=== PATIENT | male | born 1985 ===

== ENCOUNTER 2019-01-11 07:33 | Emergency (ER) | payer SELFPAY ==
--- NOTE | 2019-01-11 07:53 | UC ---
UC General HPI - HPI Summary HPI Summary: right sided mid back pain for two days. painful to urinate difficult to void, burning. 33 yo gentleman presents c/o pain in R back and R flank, started a couple days ago. Some associated dysuria / freq / urg. No fever / chills. Pain worse yesterday, couldn't sleep last night d/t pain. Has taken ibuprofen several times, most recently last evening. Helps a little but not much. No rash. No hx nor now family hx of similar pain. Does not take supplements. 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 Has not vomited. No sob / cp / palpiations. No hx abd surgery - History of Current Complaint Chief Complaint: UCGU Stated Complaint: BACK PAIN Hx Obtained From: Patient Pain Intensity: 9 - Allergy/Home Medications Allergies/Adverse Reactions: Allergies Allergy/AdvReac Type Severity Reaction Status Date / Time No Known Allergies Allergy Verified 01/11/19 07:46 Home Medications: Home Medications NK [No Home Medications Reported] 01/11/19 [History Confirmed 01/11/19] PMH/Surg Hx/FS Hx/Imm Hx Previously Healthy: Yes - Surgical History Surgical History: None - Family History Known Family History: Positive: Other - see hpi - Social History Alcohol Use: Rare Substance Use Type: Marijuana Smoking Status (MU): Light Every Day Tobacco Smoker Review of Systems All Other Systems Reviewed And Are Negative: Yes Constitutional: Positive: Fever Skin: Positive: Other - no rash Eyes: Positive: Negative ENT: Positive: Negative Respiratory: Positive: Negative Cardiovascular: Positive: Negative Gastrointestinal: Positive: Other - see hpi Genitourinary: Positive: Other - see hpi Motor: Positive: Negative Neurovascular: Positive: Negative Musculoskeletal: Positive: Negative Neurological: Positive: Negative Psychological: Positive: Negative Is Patient Immunocompromised?: No Physical Exam Triage Information Reviewed: Yes Appearance: Well-Nourished - looks uncomfortable, but nontoxic, nad Vital Signs: Initial Vital Signs Temp 98.2 F 01/11/19 07:40 Pulse 104 01/11/19 07:40 Resp 20 01/11/19 07:40 BP 161/105 01/11/19 07:40 Pulse Ox 98 01/11/19 07:40 Vital Signs Reviewed: Yes Eye Exam: Normal - grossly normal ENT Exam: Normal - grossly normal Respiratory Exam: Normal Respiratory: Positive: Chest non-tender, Lungs clear, Normal breath sounds, No respiratory distress, No accessory muscle use Cardiovascular Exam: Normal Cardiovascular: Positive: RRR, No Murmur, Pulses Normal, Brisk Capillary Refill Abdominal Exam: Other Abdomen Description: Positive: Other: - + R flank + R back tenderness. ABd soft. No hsm appreciated. No bladder tenderness with pressure. No visible or reported rash. Musculoskeletal Exam: Normal Neurological Exam: Normal Psychological Exam: Normal - conversing easily and appropriately Skin Exam: Normal - nondiaphoretic Course/Dx - Course Course Of Treatment: Offered ketoralac, declines. Urine dip noted + blood (see meditech). Cx sent. CT a/p noncont renal study - 3mm calculus at distal ureter. There is hydroureter, hydronephrosis. Reviewed results with pt and mom (driving). 09:40 requests pain medication (declines hydrocodone d/t gi, but will try T#3) Will check cbc, bmp. Does not have pcp, will look for a pcp. [facility] [place] referral tel given. Will refer to Urology. To ED for ANY worse or new problems. Questions as posed answered to the best of my ability. - Diagnoses Provider Diagnosis: Kidney stone on right side, Hydronephrosis Discharge - Sign-Out/Discharge Documenting (check all that apply): Patient Departure All imaging exams completed and their final reports reviewed: Yes - Discharge Plan Condition: Stable Disposition: HOME Patient Education Materials: Kidney Stones (ED), Hydronephrosis (ED) Referrals: No Primary Care Phys,NOPCP [Primary Care Provider] - Additional Instructions: Drink plenty of water. Do not drive / operate heavy machinery while you are in pain, or while you are taking pain medications. Follow up with urology next week if possible. Go to the EMERGENCY DEPARTMENT for any worse or new problems. You have a urine culture in the lab. You will be notified if positive, requiring results. - Billing Disposition and Condition Condition: STABLE Disposition: Home
[2019-01-11] MEDS ORDERED: Acetaminop/Codeine 30 MG TAB* 1 TAB (300 MG/30 MG) PO ONE (09:50)
[2019-01-11 10:36] VITALS: BP 152/96
[2019-01-11 12:55] LABS: ABS Basophils 0 10^3/ul (0-0.2); ABS Eosinophils 0.1 10^3/ul (0-0.6); ABS Lymphocytes 1.6 10^3/ul (1.0-4.8); ABS Monocytes 1.1 10^3/ul (0-0.8); ABS Neutrophils 8.1 10^3/ul (1.5-7.7); ABS Nucleated RBC 0 10^3/ul; Eosinophil % 0.8 %; Hematocrit 44 % (36-46); Hemoglobin 15.2 g/dL (14.0-18.0); Lymphocyte % 14.8 %; Mean Corpuscular HGB Conc 35 g/dL (31-36); Mean Corpuscular Hemoglobin 29 pg (27-31); Mean Corpuscular Volume 83 fL (80-94); Mean Platelet Volume 7.7 fL (7.4-10.4); Nucleated Red Blood Cells % 0.1; Platelet Count 274 10^3/uL (150-450); Red Blood Count 5.25 10^6 /uL (4.18-5.48); Red Cell Distribution Width 14 % (10.5-15); White Blood Count 10.9 10^3/uL (3.5-10.8)
[2019-01-11 13:10] LABS: BUN/Creatinine Ratio 13.8 (8-20); Calcium 9.4 mg/dL (8.6-10.3); EGFR African American 71.8 (>60); EGFR Non-African American 59.3 (>60); Potassium 3.9 mmol/L (3.5-5.0)
--- NOTE | 2019-01-12 07:55 | UC ---
- Progress Note Progress Note: Lab work comes back with a white blood cell count elevated at 10.9, glucose elevated at 108, and creatinine elevated at 1.38. Urine did not have any signs of infection and it. CT showed a 3 mm kidney stone and the patient was recommended to follow up with urology. Nursing to call patient and make sure they're following up with urology for the kidney stone. Inform them that the creatinine should be rechecked after the stone has passed to ensure that it's gone back to normal. Course/Dx - Diagnoses Provider Diagnoses: Kidney stone on right side, Hydronephrosis Discharge - Sign-Out/Discharge Documenting (check all that apply): Patient Departure All imaging exams completed and their final reports reviewed: Yes - Discharge Plan Condition: Stable Disposition: HOME Prescriptions: Acetaminop/Codeine 30 MG TAB* [Tylenol/Codeine 30 MG TAB*] 1 - 2 tab PO Q6H PRN #20 tab MDD 8 PRN Reason: Pain Ibuprofen TAB* [Motrin TAB* 600 MG] 600 mg PO Q6H PRN #30 tab PRN Reason: Pain Patient Education Materials: Kidney Stones (ED), Hydronephrosis (ED) Forms: *Work Release Referrals: [facility] [place] PHYSICIAN REFERRAL [Outside] No Primary Care Phys,NOPCP [Primary Care Provider] - Brian Santiago MD [Medical Doctor] - Additional Instructions: Drink plenty of water. Do not drive / operate heavy machinery while you are in pain, or while you are taking pain medications. Follow up with urology next week if possible. Go to the EMERGENCY DEPARTMENT for any worse or new problems. You have a urine culture in the lab. You will be notified if positive, requiring results. - Billing Disposition and Condition Condition: STABLE Disposition: Home
== END 2019-01-11 10:45 | disposition home or self-care (01) ==
LOC: UCEAST 07:33
DX: N13.2 Hydronephrosis with renal and ureteral calculous obstruction (principal); R50.9 Fever, unspecified; D72.829 Elevated white blood cell count, unspecified; R73.9 Hyperglycemia, unspecified; F17.200 Nicotine dependence, unspecified, uncomplicated
CPT/HCPCS: 36415; 74176; 80048; 81003; 85025; 87086; 99202; A9270-GY; G0463